=== PATIENT | male | born 1985 | race Caucasian/White ===

== ENCOUNTER 2023-02-06 16:02 | Outpatient (RCR) | payer BC, SELFPAY | END 2023-02-06 23:59 | disposition home or self-care (01) | LOC: RPT 16:02 | PROVIDERS: ATTENDING PHYSICIAN Orthopaedic Surgery Hand Surgery; FAMILY PHYSICIAN Physician Assistant Medical | DX: M25.511 Pain in right shoulder (principal) | CPT/HCPCS: 97010; 97110; 97140 ==

== ENCOUNTER 2023-10-23 01:36 | Emergency (ER) | payer BC, SELFPAY ==
[2023-10-23 01:39] VITALS: BP 159/98
--- NOTE | 2023-10-23 01:50 | ED.GENMED ---
History of Present Illness
General
Chief Complaint: Musculo-Skeletal Complaint
Source: patient
Exam Limitations: none
Time Seen by Provider: 10/23/23 01:43
History of Present Illness
History of Present Illness:
See MDM
Past History
Past History
ED Past Medical History: None
ED Past Surgical History: None
Social History
Tobacco: Non-smoker
Alcohol: None
Phy Exam
Physical Exam
Physical Exam:
See MDM
Course
Orders/Labs/Results
Orders:
Orders
10/23/23 01:46
Ketorolac [Toradol] 30 mg IM NOW STA
Elbow, 3 view, Left [CR Elbow - Left Min 3 Views ] Urgent
Comment:
Reason For Exam: work injury, lifting injury, lateral arm pain
Vital Signs
Initial and Last Documented VS:
Initial Vital Signs
Temp Pulse Resp BP Pulse Ox
98.9 F 88 18 159/98 97
10/23/23 01:39 10/23/23 01:39 10/23/23 01:39 10/23/23 01:39 10/23/23 01:39
Last Documented Vital Signs
Temp Pulse Resp BP Pulse Ox
98.9 F 88 18 159/98 97
10/23/23 01:39 10/23/23 01:39 10/23/23 01:39 10/23/23 01:39 10/23/23 01:39
MDM/Problems Addressed
Differential Diagnosis Includes:
HPI and MDM Narrative:
38-year-old male presenting for evaluation of left arm pain. Patient was working and helping lift another body. He felt a strain on his left outer arm. The pain has been going down into his wrist.
On exam, it is a likely muscle strain to the lateral aspect of his left arm. Given the proximity to the elbow, will obtain x-ray. The distal extremity is otherwise neurovascular intact
Physical exam
General: Well appearing and non-toxic
HEENT: protecting airway
Neck: appears supple
CV: No evidence of cyanosis
Resp: No accessory muscle use
Abd: Non-distended
Extremities: No deformities. Tenderness localized to left lateral arm. No pain with supination or pronation. Distal extremity neurovascular intact
Neuro: alert
Psych: Normal affect
Skin: Intact
Problems Addressed including Acute and Chronic Conditions affecting care:
1. Left arm injury
Acuity: acute
Prognosis: stable
Details: Discussed likely muscle strain. Will obtain x-ray
Updates
X-ray negative for fracture. Discussed likely arm strain. Discussed follow-up with orthopedics if symptoms persist
Differential Diagnosis (but not limited to): Muscle strain, tendinitis
Testing considered: Forearm x-ray
Drug therapy (if applicable): OTC meds, please see d/c instruction regarding Rx drugs
Amount and/or Complexity of Data Reviewed
Clinical info obtained from: Patient
External data reviewed: N/A
Labs I independently reviewed (but not limited to): N/A
Radiology: X-ray independently reviewed: Elbow x-ray negative for fracture
Pulse Ox: not hypoxic
EKG independently reviewed: N/A
Centerless Grinder Set Up Operator: N/A
Critical Care: N/A
Risk of Complication:
Social Determinants of health: Good social support
Discussed with other providers: N/A
Escalation of Care includes Admit/Obs: After being observed in the Emergency Department, pt stable for discharge.
Occasional wrong word or 'sound a like' substitutions may have occurred due to the inherent limitations of voice recognition software. Read the chart carefully and recognize, using context, where substitutions have occurred.
*Critical Care Note
Total Time (30-74mins, 75-104mins- exclusive of procedures): Not Applicable
ED Attending Note
-
Portions of this chart may have been created with voice recognition software.� Occasional wrong word or��sound alike� substitutions may have occurred due to the inherent limitations of voice recognition software.
Discharge Plan
Departure
Patient Disposition: Home (Routine Discharge)
Date of Disposition: 10/23/23
Time of Disposition: 02:19
Patient with high blood pressure during this ER visit?: Yes
Discharge Problem:
Strain of left upper arm
Instructions: BLOOD PRESSURE
Referrals:
Tomas Barriga MD [Active] -
Activity Restrictions/Additional Instructions:
Please follow-up with occupational health. Please follow-up with orthopedist if symptoms persist
Interventions
Interventions:
*Risk Screen - Suicide Last Done: 10/23/23 01:39
*General Assessment Last Done: 10/23/23 01:39
*Neglect/Abuse Screening Last Done: 10/23/23 01:39
ED-Musculoskeletal Assessment Last Done: 10/23/23 01:49
Discharge Date and Time
Print Language: [facility]
[2023-10-23] MEDS: TORADOL 30 MG IM (02:01)
== END 2023-10-23 02:36 | disposition home or self-care (01) ==
LOC: EMR 01:36
PROVIDERS: EMERGENCY PHYSICIAN Student in an Organized Health Care Education/Training Program
DX: S46.912A Strain of unspecified muscle, fascia and tendon at shoulder and upper arm level, left arm, initial encounter (principal); X50.0XXA Overexertion from strenuous movement or load, initial encounter; Y99.0 Civilian activity done for income or pay
CPT/HCPCS: 99284; 96372; 73080

== ENCOUNTER → 2023-10-27 08:32 | Outpatient (REF) | payer OTHER, SELFPAY | LOC: MRI 08:32 | PROVIDERS: ATTENDING PHYSICIAN Nurse Practitioner Family; FAMILY PHYSICIAN Family Medicine | DX: M79.622 Pain in left upper arm (principal) | CPT/HCPCS: 73218 ==

== ENCOUNTER → 2023-10-31 07:12 | Outpatient (REF) | payer BC, SELFPAY ==
[2023-10-31 08:35] LABS: % Basophils 0.5 % (0-2); % Eosinophils 0.1 % (0-6); % Immature Granulocytes 0.5 % (0-0.5); % Lymphocytes 29.2 % (20.5-51.1); % Monocytes 8.7 % (1.7-9.3); Absolute Basophils 0.1 10^3/uL (0-0.2); Absolute Immature Granulocytes 0.1 10^3/uL (0-0.05); Absolute Lymphocytes 3.8 10^3/uL (1.2-3.4); Absolute Monocytes 1.1 10^3/uL (0.1-0.6); Hematocrit 47.9 % (39.0-52.0); Hemoglobin 16.6 g/dL (13.0-18.0); Mean Corp Hgb Conc. 34.7 g/dL (33.0-37.0); Mean Corpuscular Hgb 29.9 pg (27.0-31.0); Mean Corpuscular Volume 86.3 fL (80.0-94.0); Mean Platelet Volume 9.6 fL (7.4-10.4); Nucleated Red Blood Cells % 0 % (-); Platelet Count 378 10^3/uL (130-400); Red Blood Cell Count 5.55 10^6/uL (4.70-6.10); Red Cell Dist. Width 13.2 % (11.5-14.5); White Blood Cell Count 13.1 10^3/uL (4.8-10.8)
[2023-10-31 09:04] LABS: ALT (SGPT) 78 U/L (0-50); AST (SGOT) 37 U/L (17-59); Albumin 4.9 g/dl (3.5-5.0); Alkaline Phosphatase 82 U/L (38-126); Blood Urea Nitrogen 19 mg/dl (9-20); Calcium 10.3 mg/dl (8.4-10.2); Carbon Dioxide 26 mmol/L (22-30); Chloride 99 mmol/L (98-107); Glucose 88 mg/dl (70-99); HDL Cholesterol 84 mg/dl; LDL Cholesterol, Calculated 145 mg/dl; Potassium 4.5 mmol/L (3.5-5.1); Sodium 141 mmol/L (135-145); Total Bilirubin 0.7 mg/dl (0.2-1.3); Total Cholesterol 254 mg/dl (50-199); Total Protein 7.9 g/dl (6.3-8.2); Triglyceride 125 mg/dl (10-149); Very Low Density Lipoprotein 25 mg/dl (0-30); eGFR > 60.00
[2023-10-31 09:34] LABS: TSH 1.61 uIU/ml (0.47-4.68)
== END ==
LOC: REG 07:12
PROVIDERS: ATTENDING PHYSICIAN Physician Assistant Medical
DX: Z00.00 Encounter for general adult medical examination without abnormal findings (principal)
CPT/HCPCS: 36415; 80053; 80061; 84443; 85025

== ENCOUNTER 2023-12-09 13:55 | Outpatient (RCR) | payer OTHER, SELFPAY | END 2023-12-09 23:59 | disposition home or self-care (01) | LOC: RPT 13:55 | PROVIDERS: ATTENDING PHYSICIAN Orthopaedic Surgery Hand Surgery; FAMILY PHYSICIAN Physician Assistant Medical | DX: M79.602 Pain in left arm (principal); Z73.6 Limitation of activities due to disability; M62.81 Muscle weakness (generalized); M25.522 Pain in left elbow; X58.XXXD Exposure to other specified factors, subsequent encounter; Y93.F2 Activity, caregiving, lifting; Y92.230 Patient room in hospital as the place of occurrence of the external cause; Y99.0 Civilian activity done for income or pay | CPT/HCPCS: 97010; 97110; 97140; 97161 ==

== ENCOUNTER → 2024-12-08 13:57 | Outpatient (REF) | payer BC, SELFPAY ==
[2024-12-08 14:54] LABS: Hematocrit 47.6 % (39.0-52.0); Hemoglobin 16.8 g/dL (13.0-18.0); Mean Corp Hgb Conc. 35.3 g/dL (33.0-37.0); Mean Corpuscular Volume 83.8 fL (80.0-94.0); Nucleated Red Blood Cells % 0 % (-); Platelet Count 378 10^3/uL (130-400); Red Cell Dist. Width 12.8 % (11.5-14.5)
[2024-12-08 15:10] LABS: ALT (SGPT) 45 U/L (0-50); AST (SGOT) 31 U/L (17-59); Albumin 5.0 g/dl (3.5-5.0); Alkaline Phosphatase 69 U/L (38-126); Blood Urea Nitrogen 12 mg/dl (9-20); Calcium 10.2 mg/dl (8.4-10.2); Carbon Dioxide 27 mmol/L (22-30); Chloride 100 mmol/L (98-107); Glucose 84 mg/dl (70-99); HDL Cholesterol 59 mg/dl; Iron 194 ug/dl (49-181); LDL Cholesterol, Calculated 179 mg/dl; Potassium 4.5 mmol/L (3.5-5.1); Sodium 138 mmol/L (135-145); Total Protein 8.3 g/dl (6.3-8.2); Very Low Density Lipoprotein 31 mg/dl (0-30); eGFR > 60.00
[2024-12-08 15:19] LABS: Total Iron Binding Capacity 362 ug/dl (261-462)
[2024-12-08 15:26] LABS: Vitamin D, 25-OH*** 40.0 ng/mL (30-80)
[2024-12-08 15:40] LABS: PSA, Total - Screen 1.95 ng/ml (0.0-4.0); TSH 1.17 uIU/ml (0.47-4.68)
[2024-12-08 15:44] LABS: Ferritin 166.0 ng/ml (17.9-464.0)
[2024-12-08 16:16] LABS: Folate 11.0 ng/ml (2.76-20); Vitamin B12 312 pg/ml (239-931)
== END ==
LOC: REG 13:57
PROVIDERS: ATTENDING PHYSICIAN Physician Assistant Medical
DX: Z00.00 Encounter for general adult medical examination without abnormal findings (principal); R53.81 Other malaise; R53.83 Other fatigue
CPT/HCPCS: 36415; 80053; 80061; 82306; 82607; 82728; 82746; 83540; 83550; 84270; 84402; 84403; 84443; 85025; G0103

== ENCOUNTER → 2025-02-08 09:42 | Outpatient (REF) | payer BC, SELFPAY ==
[2025-02-08 11:27] LABS: FSH 3.8 mIU/ml (1.55-9.74)
== END ==
LOC: REG 09:42
PROVIDERS: ATTENDING PHYSICIAN Surgery; FAMILY PHYSICIAN Physician Assistant Medical
DX: E29.1 Testicular hypofunction (principal)
CPT/HCPCS: 36415; 82670; 83001; 83002; 84270; 84402; 84403